=== PATIENT | female | born 1990 | race African-American/Black ===

== ENCOUNTER 2017-08-31 14:04 | Emergency (ER) | payer BC ==
[~2017-08-31] VITALS: Ht 167.6 cm; Wt 59.4 kg
--- NOTE | ~2017-08-31 | EKG ---
[address] [address] ELECTROCARDIOGRAM REPORT Name: CHILO POWERS Room #: DEP [facility]EREstefanyEstefany#: [id number] Admission: 08/31/17 Attend Phys: Discharge: 08/31/17 Date of : 88 Report #: [id number] THIS REPORT FOR: //name// [facility] ED Test Date: 2017-08-31 Test Time: 14:07:10 Pat Name: CHILO POWERS Department: Room: Gender: F Color Adviser: JANAK : 1990 Requested By: Jerman Johnson Order Number: [id number] MD: Jeremie Schrader Measurements Intervals [place] Rate: 59 P: 77 NV: 162 QRS: 37 QRSD: 73 T: 37 QT: 411 QTc: 408 Interpretive Statements Sinus bradycardia Otherwise normal tracing No previous ECG available for comparison Electronically Signed On 09-02-2017 8:33:52 CDT by Jeremie Schrader [email or web address] <ELECTRONICALLY SIGNED> By: Jeremie Schrader MD, [facility] 09/02/17 0833 [id number] 1407 Jeremie Schrader MD, FACC /EPI
[2017-08-31] MEDS ORDERED: PROGESTERONE100 MG PO (14:37)
[2017-08-31 14:39] LABS: URINE BILIRUBIN NEGATIVE (Negative); URINE BLOOD 3+ (Negative); URINE CLARITY CLEAR; URINE COLOR YELLOW; URINE GLUCOSE-RANDOM* NEGATIVE (Negative); URINE KETONES NEGATIVE (Negative); URINE LEUKOCYTES-REFLEX NEGATIVE (Negative); URINE NITRITE-REFLEX NEGATIVE (Negative); URINE PROTEIN (DIPSTICK) NEGATIVE (Negative); URINE SPECIFIC GRAVITY <= 1.005 (1.005-1.035); URINE UROBILINOGEN 0.2 E.U./dl (0.2-1.0)
[2017-08-31 14:56] LABS: CASTS None Seen /LPF (None Seen); SQUAMOUS 0-3 Few /LPF (0-3)
[2017-08-31 14:57] LABS: BACTERIA-REFLEX None Seen /HPF (None Seen); CRYSTALS None Seen /LPF (None Seen); URINE RBC >20 Many /HPF (0-2); URINE WBC-REFLEX None Seen /HPF (0-5)
[2017-08-31] MEDS ORDERED: FLEXERIL PO (15:44)
[2017-08-31] MEDS ORDERED: IBUPROFEN 600600 M1 PO (15:44)
[2017-08-31 16:30] VITALS: BP 118/85
== END 2017-08-31 16:31 | disposition home or self-care (01) ==
LOC: ER 14:04
PROVIDERS: Emergency Medicine
DX: R07.1 Chest pain on breathing (principal); M54.9 Dorsalgia, unspecified; M25.519 Pain in unspecified shoulder